=== PATIENT | female | born 1955 | race Caucasian/White ===

== ENCOUNTER 2017-01-03 13:02 | Emergency (ER) | payer BC, OTHER ==
[2017-01-03] MEDS ORDERED: BACIGUENT PACKET TP ONE (13:26)
[2017-01-03] MEDS ORDERED: Marcaine 0.5% SDV 10 ML IJ ONE (13:26)
[2017-01-03] MEDS ORDERED: Marcaine 0.5% SDV 10 ML ONE (13:26)
[2017-01-03] MEDS ORDERED: Adacel Vial IM ONE ×2 (13:26→14:09)
[2017-01-03 13:36] VITALS: O2SAT 98
[2017-01-03] MEDS ORDERED: BACIGUENT PACKET ONE (13:54)
--- NOTE | 2017-01-03 14:01 | ERPHSYRPT ---
- History of Present Illness Time Seen by Provider: 01/03/17 13:19 Source: patient, family () Patient Subjective Stated Complaint: stepped on toothpick this am and got it stuck in right foot Triage Nursing Assessment: to room per w/c. Physician History: CC: FB foot Hx: 61 y/o stepped on toothpick which broke off in her right foot this AM. tried to pull it out but could not as it was broken. Unsure last tetanus vaccine. She went to [facility] where they [employer] attempted to cut it out but were not successfull. She came to ER. Occurred: this morning Lower Extremities Pain: foot: right Allergies/Adverse Reactions: acetaminophen [From Vicodin] Allergy (Verified 01/03/17 13:37) aspirin [From Percodan] Allergy (Verified 01/03/17 13:37) clarithromycin [From Biaxin] Allergy (Verified 01/03/17 13:37) hydrocodone [From Vicodin] Allergy (Verified 01/03/17 13:37) meperidine [From Demerol] Allergy (Verified 01/03/17 13:37) morphine Allergy (Verified 01/03/17 13:37) naproxen Allergy (Verified 01/03/17 13:37) oxycodone [From Percodan] Allergy (Verified 01/03/17 13:37) Penicillins Allergy (Verified 01/03/17 13:37) sulfamethoxazole [From Bactrim] Allergy (Verified 01/03/17 13:37) trimethoprim [From Bactrim] Allergy (Verified 01/03/17 13:37) Hx Tetanus, Diphtheria Vaccination/Date Given: No Hx Influenza Vaccination/Date Given: No Hx Pneumococcal Vaccination/Date Given: No - Review of Systems Constitutional: No Fever, No Chills Musculoskeletal: Injury (FB right foot) - Past Medical History Pertinent Past Medical History: No - Past Surgical History Past Surgical History: Yes Female Surgical History: Hysterectomy, Lumpectomy, Other Other Surgical History: ovarian tumor, vaginal repair, fatty tumor left side - Social History Smoking Status: Never smoker Exposure to second hand smoke: No Drug Use: none Patient Lives Alone: No - Nursing Vital Signs Nursing Vital Signs: Initial Vital Signs Temperature 97.8 F 01/03/17 13:23 Pulse Rate 85 01/03/17 13:23 Respiratory Rate 18 01/03/17 13:23 Blood Pressure 152/109 01/03/17 13:23 O2 Sat by Pulse Oximetry 98 01/03/17 13:23 Pain Scale Pain Intensity 10 - Physical Exam General Appearance: alert Eyes, Ears, Nose, Throat Exam: moist mucous membranes Neck Exam: supple Cardiovascular/Respiratory Exam: normal breath sounds, regular rate/rhythm Neuro/Tendon Exam: normal sensation, normal motor functions Mental Status Exam: alert, oriented x 3, cooperative Skin Exam: warm, dry SpO2: 98 Oxygen Delivery: Room Air Comments: Right foot in 4-5 web space there is incision 5mm long. The area is tender. Procedures - Additional Procedures Progress: Foreign Body removal right foot: The area was numbed with 0.5% plain marcaine 4ml. Cleansed with betadine. The splinter was grasped with splinter forceps and removed apparently in toto. The cavity was irrigated with NS. Wound instr given. Will Rx keflex. - Course Nursing assessment & vital signs reviewed: Yes Ordered Tests: Active Orders 24 hr Category Date Time Status Wound Care STAT Care 01/03/17 13:26 Active Medication Summary Discontinued Medications Generic Name Dose Route Start Last Admin Trade Name [place] PRN Reason Stop Dose Admin Bacitracin 0.9 gm 01/03/17 13:26 Baciguent Packet TP 01/03/17 13:27 STAT ONE Bacitracin Confirm 01/03/17 13:54 Baciguent Packet Administered 01/03/17 13:55 Dose 1 gm .ROUTE .STK-MED ONE Bupivacaine HCl 5 ml 01/03/17 13:26 Marcaine 0.5% Sdv 10 Ml IJ 01/03/17 13:27 STAT ONE Bupivacaine HCl Confirm 01/03/17 13:26 Marcaine 0.5% Sdv 10 Ml Administered 01/03/17 13:27 Dose 10 ml .ROUTE .STK-MED ONE Diphtheria/Tetanus/Acell Pertussis 0.5 ml 01/03/17 13:26 Adacel Vial IM 01/03/17 13:27 .ONCE ONE - Progress Progress Note: 01/03/17 14:03 She had rash with pcn as a child per mother report. Has never had keflex. Discussed relationship and low but possible reaction. - Departure Time of Disposition: 14:01 Departure Disposition: Home Clinical Impression: Foreign body in foot, right Qualifiers: Encounter type: initial encounter Qualified Code(s): S90.851A - Superficial foreign body, right foot, initial encounter Condition: Stable Critical Care Time: No Referrals: Kaitlynn Palafox [Primary Care Provider] - Instructions: Removal of Foreign Body From Skin Additional Instructions: Rx keflex. Elevate foot. Cleanse wound twice a day and keep clean and dry. Report any sign of infection right away. Prescriptions: Cephalexin Mh 500 mg [Keflex 500 mg] 1 cap PO QID #28 capsule
[2017-01-03 14:03] VITALS: BP 131/82
[2017-01-03 14:06] VITALS: PULSE 85
== END 2017-01-03 14:49 | disposition home or self-care (01) ==
LOC: ED 13:02
PROC: 0HCMXZZ Extirpation of Matter from Right Foot Skin, External Approach (ICD-10-PCS; principal; 2017-01-03)
DX: S90.851A Superficial foreign body, right foot, initial encounter (principal); W22.8XXA Striking against or struck by other objects, initial encounter
CPT/HCPCS: 10120; 90471; 90715; 99283; 99284; A9270-GY